=== PATIENT | female | born 1955 | race African-American/Black ===

== ENCOUNTER 2020-04-11 16:43 | Inpatient (IN) | payer OTHER ==
[~2020-04-11] VITALS: Ht 165.1 cm; Wt 65.8 kg
[~2020-04-11 16:43] MED LIST: ALLEGRA180 MG; LISINOPRIL5 MG; NOVOLOG100 UNIT/1; PREVACID15 MG; PROCHAMBER1 EACH; TRAMADOL 50 MG50 MG PO
[2020-04-11 16:45] VITALS: BP 192/107
[2020-04-11 17:50] LABS: ABSOLUTE NEUTROPHILS 6.9 thou/uL (1.4-8.2); BASOPHILS 0.5 % (0.0-2.0); EOSINOPHILS 3.5 % (0.0-3.0); LYMPHOCYTES 20.6 % (24.0-44.0); MCH 29.2 pg (26.0-34.0); MCHC 33.2 g/dL (28.0-37.0); PLATELET COUNT 274 thou/uL (150-400); POLYS 65.4 % (36.0-66.0); RBC 4.09 mil/uL (4.20-5.00); RDW 13.1 % (10.5-14.5); WBC 10.5 thou/uL (4.0-11.0)
[2020-04-11 17:52] LABS: ANION GAP 11 mmol/L (7-16); BUN 51 mg/dL (7-18); CALCIUM 8.8 mg/dL (8.5-10.1); CHLORIDE 110 mmol/L (98-107); CO2 21 mmol/L (21-32); CREATININE 2.8 mg/dL (0.6-1.0); GLUCOSE 108 mg/dL (74-106); POTASSIUM 4.7 mmol/L (3.5-5.1); SODIUM 142 mmol/L (136-145)
[2020-04-11 17:58] LABS: ALBUMIN 2.7 g/dL (3.4-5.0); SALICYLATE < 2.8 mg/dL (2.8-20.0); SGOT 27 U/L (15-37); SGPT 15 U/L (30-65); TOTAL BILIRUBIN 0.3 mg/dL (0.2-1.0)
[2020-04-11 18:01] LABS: URINE BILIRUBIN NEGATIVE (Negative); URINE BLOOD TRACE (Negative); URINE CLARITY CLEAR; URINE COLOR YELLOW; URINE GLUCOSE-RANDOM* NEGATIVE (Negative); URINE KETONES 1+ (Negative); URINE LEUKOCYTES-REFLEX NEGATIVE (Negative); URINE NITRITE-REFLEX NEGATIVE (Negative); URINE PROTEIN (DIPSTICK) 3+ (Negative); URINE SPECIFIC GRAVITY 1.025 (1.005-1.035); URINE UROBILINOGEN 0.2 E.U./dl (0.2-1.0)
[2020-04-11 18:08] LABS: CASTS None Seen /LPF (None Seen); SQUAMOUS 0-3 Few /LPF (0-3); URINE RBC 0-2 Rare /HPF (0-2)
[2020-04-11 18:09] LABS: AMORPHOUS URATES Moderate /LPF (None Seen); AMP/METHAMP Negative (Negative); BACTERIA-REFLEX 1-9 Few /HPF (None Seen); BARBITURATES Negative (Negative); BENZODIAZEPINES Negative (Negative); COCAINE Negative (Negative); METHADONE Negative (Negative); OPIATES Negative (Negative); PCP Negative (Negative); URINE WBC-REFLEX None Seen /HPF (0-5)
[2020-04-11] MEDS ORDERED: ADVAIR 250-501 EACH INH (19:15)
[2020-04-11] MEDS ORDERED: PROAIR HFA8.5 GM INH (19:15)
[2020-04-11] MEDS ORDERED: NORVASC 2.5 MG2.5 M1 PO (19:16)
[2020-04-11] MEDS ORDERED: BACLOFEN 10MG T10 MG PO (19:16)
[2020-04-11] MEDS ORDERED: ASA81BEC PO (19:16)
[2020-04-11] MEDS ORDERED: ARTIFICIAL TEAR1510 OPHTHALMIC (19:16)
[2020-04-11] MEDS ORDERED: LIPITOR40 MG PO (19:16)
[2020-04-11] MEDS ORDERED: CALCITRIOL0.25 MCG PO (19:17)
[2020-04-11] MEDS ORDERED: CARVEDILOL12.5 MG PO (19:18)
[2020-04-11] MEDS ORDERED: VALPROIC ACID250 MG PO (19:19)
[2020-04-11] MEDS ORDERED: IRON325 PO (19:19)
[2020-04-11] MEDS ORDERED: VITAMIN B-121000 MC2 SUBLING (19:19)
[2020-04-11] MEDS ORDERED: FLONASE 0.05%50 MCG NARES (19:20)
[2020-04-11] MEDS ORDERED: CLARITIN10 M3 PO (19:20)
[2020-04-11] MEDS ORDERED: LAMOTRIGINE ODT25 MG PO (19:20)
[2020-04-11] MEDS ORDERED: MIRALAX119 GM PO (19:21)
[2020-04-11] MEDS ORDERED: LORAZEPAM 0.50.5 MG PO (19:21)
[2020-04-11] MEDS ORDERED: NITROSTAT0.4 M1 SUBLING (19:21)
[2020-04-11] MEDS ORDERED: PROTONIX40 M2 PO (19:22)
[2020-04-11] MEDS ORDERED: VENTOLIN HFA 1818 GM INH (19:22)
[2020-04-11] MEDS ORDERED: PHENERGAN 25 MG25 M1 PO (19:22)
[2020-04-11] MEDS ORDERED: REGLAN 5 MG TAB5 MG PO (19:22)
[2020-04-11] MEDS ORDERED: CARAFATE 1 GM TA1 GM PO (19:23)
[2020-04-11] MEDS ORDERED: SENNA PLUS TAB1 EACH PO (19:23)
[2020-04-11] MEDS ORDERED: ZOFRAN4 MG PO (19:24)
[2020-04-11] MEDS ORDERED: ACETAMINOPHEN500 M1 PO (19:24)
--- NOTE | 2020-04-11 20:48 | NUR ---
REPORT GIVEN TO NURSE MELISSA
[2020-04-11 21:45] VITALS: BP 146/92
[2020-04-12 00:22] VITALS: BP 148/77
--- NOTE | 2020-04-12 00:49 | NUR ---
Pt admitted to unit from ER @ 2145 via gurney. Pt was assisted into bed et health assessment with vitals was performed. Pt was unable to answer questions from intake so questions were deferred until DPOA could be spoken to. DPOA was called for consent to treat and for additional information on patient. DPO is niece et states that she is not well versed on pt's health or family history. Pt's health assessment reveals VSWNL et rudimentary physical was obtained as patient would not allow an in-depth exam or skin assessment. Pt very angry, irritable, combative, et verbally abusive with staff. Denies SI/HI. Pt currently resting in bed with eyes closed. Will continue to monitor per protocol.
[2020-04-12 07:51] VITALS: BP 145/72
[2020-04-12 08:00] VITALS: BP 145/72
--- NOTE | 2020-04-12 08:10 | EKG ---
[facility] [place] [address] [place] [address] ELECTROCARDIOGRAM REPORT Name: EMERY SIMPSON Room #: [facility]- ADM IN M.R.#: [id number] Admission: 04/11/20 Attend Phys: Waldemar Palma DO Discharge: Date of : 59 Report #: [id number] THIS REPORT FOR: cc: Sanjay Fernandez James D. DO Lundgren, Craig H. MD [facility] ~ THIS REPORT FOR: //name// [facility] ED Test Date: 2020-04-11 Test Time: 18:17:23 Pat Name: EMERY SIMPSON Department: Room: [facility] Gender: F Dry Cleaning Checker: nesha : 1955 Requested By: Erica Dixon Order Number: [id number] MD: Adam Huddleston Measurements Intervals Sherman Rate: 107 P: 63 AR: 141 QRS: 44 QRSD: 86 T: 81 QT: 331 QTc: 442 Interpretive Statements Sinus tachycardia Otherwise normal tracing Compared to ECG 09/28/2013 11:29:23 No significant change was found Electronically Signed On 04-12-2020 8:08:36 CDT by Adam Huddleston [email or web address] <ELECTRONICALLY SIGNED> By: Adam Huddleston MD, [facility] 04/12/20 0808 [id number] 16 Adam Huddleston MD, [facility] /EPI
--- NOTE | 2020-04-12 09:16 | NUR ---
PT SITTING IN DAY ROOM. PT NEEDED ASSISTANCE WITH OPENING ITEMS ON TRAY. PT TOOK AM MEDS WITHOUT ANY ISSUES. PT WAS INCON OF URINE THIS AM BEFORE GETTING UP FOR BREAKFAST. PT DIDN'T HAVE ANY BEHAVIORS WITH CHANGING BRIEF AND PANTS. APPLIED SKIN BARRIER TO AI AREA.
--- NOTE | 2020-04-12 10:23 | NUR ---
Nutrition: Pt admitted with major neurocognitive disorder to [facility] unit. Had been combative, verbally abusive to staff at [facility]. PMH: dementia, chronic constipation, CVA, HTN. Spoke with pt, appeared confused. No weight hx but pt states he has lost 100#. Unsure of accuracy. No wasting observed. Did report likes all food and will eat what you give her. Ate 70% of breakfast, new admit, first meal on unit. On Fe+ supplement and bowel regimen. Provider has documented malnutrition-RD will defer. Follow intake and weight trends but place as low nutrition risk for now.
--- NOTE | 2020-04-12 13:36 | NUR ---
Ariel called and left a VM with rose Clarke [phone] to complete the intake assessment.
--- NOTE | 2020-04-12 15:37 | NUR ---
Sw attempted to meet with pt but she was asleep. Sw completed the intake assessment and TP based on the inforamtion avaibale in chart.
[2020-04-12 20:00] VITALS: BP 152/87
--- NOTE | 2020-04-13 05:01 | NUR ---
Assumed care of pt at 1900. Pt calm et cooperative this shift. Took medications whole without difficulty. Ambulates via w/c. VSWNL. Health assessment with no abnormalities other than previously noted. Denies SI/HI but uncertain if pt truly understood the questions. Pt does not however appear to be in any acute emotional distress at the present time. Currently resting in recliner in dayroom with eyes closed. Will continue to monitor per protocol.
[2020-04-13 07:50] LABS: CALCIUM 8.8 mg/dL (8.5-10.1); CREATININE 2.8 mg/dL (0.6-1.0); MAGNESIUM 1.8 mg/dL (1.8-2.4); POTASSIUM 4.5 mmol/L (3.5-5.1)
[2020-04-13 07:52] LABS: ABSOLUTE NEUTROPHILS 4.8 thou/uL (1.4-8.2); BASOPHILS 0.5 % (0.0-2.0); EOSINOPHILS 3.9 % (0.0-3.0); HEMATOCRIT 33.1 % (37.0-47.0); HEMOGLOBIN 10.9 gm/dL (12.0-15.0); LYMPHOCYTES 29.8 % (24.0-44.0); MCH 29.4 pg (26.0-34.0); MCV 89.2 fL (80.0-100.0); MONOCYTES 9.2 % (1.0-8.0); PLATELET COUNT 233 thou/uL (150-400); POLYS 56.6 % (36.0-66.0); RBC 3.71 mil/uL (4.20-5.00); RDW 13.3 % (10.5-14.5); WBC 8.4 thou/uL (4.0-11.0)
[2020-04-13 08:50] VITALS: BP 121/70
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
[2020-04-13 10:09] VITALS: BP 121/70
--- NOTE | 2020-04-13 17:47 | NUR ---
Patient was sleeping during group.
[2020-04-13 20:11] VITALS: BP 157/78
[2020-04-13 22:00] VITALS: BP 157/78
--- NOTE | 2020-04-14 01:38 | NUR ---
Assumed care of patient this pm shift. Patient lying in her room in bed. Patient is rousable but speaks very little. Patient is mostly asleep unless aroused. Patient did not respond regarding pain. Patient did not answer any of the cognitive questions. Patients assessment shows diminished breath sounds, hypoactive bowel sounds, and s1 s2 heard with auscultation. Patient takes medications whole but did not arouse enough to take them this evening. We will continue to monitor per hospital protocol.
[2020-04-14 06:37] LABS: ALBUMIN 2.5 g/dL (3.4-5.0); CALCIUM 8.8 mg/dL (8.5-10.1); CREATININE 2.8 mg/dL (0.6-1.0); PHOSPHORUS 4.1 mg/dL (2.5-4.9)
[2020-04-14 07:46] VITALS: BP 149/98
--- NOTE | 2020-04-14 08:25 | NUR ---
PT SITTING OUT IN DINING ROOM TALKING AND LAUGHING. PT STATED SHE IS AT THE BEST CONSTITUTION PARTY EVER AND HAVING FUN. SHE ALSO MAKES COMMENTS OF PLZ K[employer]. PT NEEDS ASSISTANCE WITH EATING, HANDS ARE WEAK. PT TOOK MEDS WHOLE WITH ASSISTANCE. PT IS TEARING.
[2020-04-14 08:30] VITALS: BP 149/98
[2020-04-14 08:56] VITALS: BP 149/98
--- NOTE | 2020-04-14 12:13 | NUR ---
CIRILO faxed updates to Anjelica.
--- NOTE | 2020-04-14 12:30 | NUR ---
PT LYING DOWN AT THIS TIME. ASKED PT IF SHE WAS READY TO GO TO LUNCH, SHE STATED SHE WOULD GET UP. EARLIER TODAY SHE STATED SHE WOULD LIKE TO HAVE TACOS, WHEN ASKED SOFT OR HARD, SHE STATED ANY KIND. PT IN HIGH SPIRITS THIS AM. WHEN THE AIDE WENT TO HER ROOM TO GET HER UP FOR LUNCH, PT WAS SLEEPING.
--- NOTE | 2020-04-14 16:08 | NUR ---
Patient was sleeping during group.
[2020-04-14 20:38] VITALS: BP 135/74
[2020-04-14 22:00] VITALS: BP 135/74
--- NOTE | 2020-04-15 01:10 | NUR ---
Assumed care of patient this pm shift. Patient in good spirits. Patient denies hi/si. Patient takes medications whole. Patient denies pain. Patient ambulates via wheelchair. Patient calm and med adherent. Patient is not continent of bowel or bladder. Patient is alert and oriented x2. Patients assessment shows clear breath sounds, diminished in the bases. Hypoactive bowel sounds, and s1 s2 heard with auscultation. Patient does not show any signs of aggression. We will continue to monitor per hospital protocol.
[2020-04-15 07:30] VITALS: BP 148/93
--- NOTE | 2020-04-15 07:30 | NUR ---
PT BLOOD SUGAR 57, GAVE PT ORANGE JUICE TO DRINK. PT DRANK 95% OF OJ.
[2020-04-15 08:00] VITALS: BP 148/93
--- NOTE | 2020-04-15 08:49 | NUR ---
PT AWAKE AT THIS TIME. PT NEEDED ASSISTANCE WITH TRANSFERS. PT LEFT HAND IS CURLED. PT NEEDS ASSISTANCE WITH FEEDING. PT ABLE TO SWALLOW WITHOUT ANY ISSUES. PT TOOK MEDS WHOLE. PT STATED SHE LIKES PINK COLOR AND ORANGE.
--- NOTE | 2020-04-15 11:47 | NUR ---
PT SLEEPING IN RECLINER. PT NEEDED ASSISTANCE WITH FEEDING. PT DID GRAB BLANKET AND SAID SHE WAS GOING TO GET THAT BITCH. PT SEEMS TO BE SEEING SOMEONE NOT THERE, PT LOOKING AT THE WALL.
--- NOTE | 2020-04-15 14:00 | NUR ---
PHYSICAL THERAPY SEEING PT AROUND THIS TIME.
--- NOTE | 2020-04-15 17:36 | NUR ---
ATTEMPTED TO GIVE 1600/1700 MEDS, PT NOT ABLE TO WAKE UP TO TAKE MEDS. PT DID AROUSE WHEN GETTING CHANGED PRIOR TO DINNER.
[2020-04-15 19:26] VITALS: BP 155/82
[2020-04-15 22:00] VITALS: BP 155/82
[2020-04-16] VITALS (8 sets, daily range): BP systolic 152–195; BP diastolic 80–122
--- NOTE | 2020-04-16 01:37 | NUR ---
Assumed care of patient this pm shift. Patient sitting in a reclining chair in the dayroom. Patient is calm and cooperative. Patient is alert and oriented to self and knows that she is in a hospital. Patient took medications crushed in orange sherbet. Patient is not ambulatory. Patient denies pain. Patient denies hi/si. Patients assessment shows course breath sounds, active bowel sounds and s1 s2 heard with auscultation. Patient resting comfortably. Patients affect appears to be flat. Patient does not show any signs of aggressive behaviors. We will continue to monitor per hospital protocol.
[2020-04-16 08:13] LABS: CREATININE 3.4 mg/dL (0.6-1.0); POTASSIUM 5.1 mmol/L (3.5-5.1)
[2020-04-16 08:18] LABS: ABSOLUTE NEUTROPHILS 5.3 thou/uL (1.4-8.2); BASOPHILS 0.3 % (0.0-2.0); EOSINOPHILS 3.3 % (0.0-3.0); HEMATOCRIT 36.1 % (37.0-47.0); HEMOGLOBIN 11.5 gm/dL (12.0-15.0); LYMPHOCYTES 25.8 % (24.0-44.0); MCH 28.9 pg (26.0-34.0); MCV 90.1 fL (80.0-100.0); MONOCYTES 9.3 % (1.0-8.0); PLATELET COUNT 259 thou/uL (150-400); POLYS 61.3 % (36.0-66.0); RDW 13.7 % (10.5-14.5); WBC 8.6 thou/uL (4.0-11.0)
[2020-04-16] MEDS ORDERED: CARVEDILOL12.5 MG PO (11:48)
[2020-04-16] MEDS ORDERED: DEPAKOTE125 MG PO (11:49)
[2020-04-16] MEDS ORDERED: PULMICORT0.5 MG/21 INH (11:50)
--- NOTE | 2020-04-16 12:43 | NUR ---
PATIENT CARE ASSUMED AT 0700 - AT THIS TIME PATIENT IN DINING CARLS[place] SLEEPING. VERY DIFFICULT TO AROUSE. BLOOD PRESSURE ELEVATED AT 195/177 WHEN TAKEN. ADMINISTERED MORNING MEDICAITONS WHICH INCLUDED NORVASC AND COREG TO AID WITH BP. DR. CHOWDARY CONTACTED ON BLOOD PRESSURE. ORDERED HYDRALAZINE IM BUT HELD - WHEN BLOOD PRESSURE TAKEN ONCE AGAIN IT WAS 162/122. ORDRED 9% NS 500 ML ADMINISTERED AT 125/HR. CALLED IV TEAM TO AID WITH IV INSERION AND START SINCE PATIENT HARD STICK. PATIENT HAS BEEN IN DINING CARLSON M O NITORED ALL MORNING. PATIENT ASSESSED BY DR. CHOWDARY AND CONCERNED WAS TAKING MINI SEIZURES AND OBSERVED STIFFNESS IN UPPER EXTREMITIES. ADVISED NURSE TO ADMINISTER KEPRA IV 500MG/5ML OVER 3-5 MIMUTES. PATIENT TOLERATED WELL. ADVISED STAFF WANTED PATIENT TO TRANSFER TO TELE MED SURG FLOOR TO BE MONITORED FURTHER. CALLED AND NO BEDS AVAILABLE BUT ON WAIT LIST FOR FIRST AVAILABLE BED. CURRENTLY PATIENT BEING MONITORED - PATIENT HAS EATEN VERY LITTLE AND LIMITED RESPONSE TO STIMULATION. VITALS STABLE AT THIS TIME AND RESPIRATIONS BETWEEN 18-20 PER MINUTE WHEN ABSERVED. FLUIDS RUNNING STEADILY. ALL MORNING MEDICATIONS ADMINISTERED CRUSHED IN APPLESAUCE AND TAKEN COMPLETELY.
--- NOTE | 2020-04-16 14:41 | NUR ---
PATIENT TRANSPORTED TO SECOND FLOOR ROOM 203 AT 14:30 TODAY. ESCORTED BY STAFF - ALL PATIENT'S BELONGINGS SENT WITH HER ALONG WITH APPROPRIATE DOCUMENTATION. PATIENT COMPLETED 300 CC OF 500 CC BAG OF 9% FLUIDS. IV IN LEFT ARM ABOVE ANTECUBULAR - PATIENT REPORT CALLED INTO MELISSA ON 2ND FLOOR. PATIENT WAS SLEEPING AND CALM ON TRANSPORT.
--- NOTE | 2020-04-17 10:55 | D ---
[facility] [place] [address] DISCHARGE SUMMARY Name: EMERY SIMPSON Room #: 523A-A [facility] IN M.R.#: [id number] Admission: 04/11/20 Attend Phys: Waldemar Palma DO Discharge: 04/16/20 Date of : 59 Report #: [id number] THIS REPORT FOR: cc: Sanjay Fernandez James D. DO Kerstein, Andrew H. 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 ATTENDING PSYCHIATRIST: Waldemar Palma DO. PROOFER BLACK AND WHITE AT THE TIME OF DISCHARGE: Genesis Nielson M.D. 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 MEDICAL COMORBIDITIES AT THE TIME OF DISCHARGE: Hypertension, borderline hypoglycemia, chronic renal failure. Additional problems include protein-calorie malnutrition, paroxysmal atrial fibrillation, chronic constipation, anemia. DIET AT THE TIME OF DISCHARGE: Will be n.p.o. due to the concern of nonconvulsive status. adjustment by hospitalist. ACTIVITY LEVEL: Bed rest at this time. Again will be reevaluated by the hospitalist on medical unit. DISCHARGE MEDICATIONS: As follows: Coreg 12.5 mg p.o. b.i.d. before meals due to hypertension, Depakote 375 mg p.o. b.i.d. for impulsivity, mood stabilization, Pulmicort 0.5 mg inhaled twice per day for COPD, once she is out of hospital she can use Advair Diskus inhaled b.i.d., p.r.n. albuterol, amlodipine 5 mg p.o. daily for blood pressure with parameters for systolic less than 100, atorvastatin 40 mg p.o. at bedtime for hyperlipidemia, aspirin 81 mg p.o. daily for cardio protection, calcitriol 0.25 mcg p.o. daily for calcium homeostasis, ferrous sulfate 325 mg p.o. daily, polyethylene glycol 17 g p.o. daily for bowel motility, ferrous sulfate for anemia, pantoprazole 40 mg p.o. daily for [facility] [address] [place] [address] DISCHARGE SUMMARY Name: EMERY SIMPSON Room #: 523A-A [facility] IN [facility].#: [id number] Admission: 04/11/20 Attend Phys: Waldemar Palma DO Discharge: 04/16/20 Date of : 59 Report #: [id number] GERD, senna docusate 2 tabs p.o. at bedtime for bowel motility. She was getting Carafate 1 tab p.o. 4 times a day for, I guess, history of gastritis. REASON FOR THE PATIENT'S PSYCHIATRIC ADMISSION IN THE END OF MARCH: As follows: A 64-year-old disabled female sent from [facility]. Apparently, the patient had been verbally abusive toward staff, throwing objects, refusing medications, physically aggressive towards nursing staff. The patient is managed by Dr. Bridges's group at [facility]. Geriatric psych admission was suggested by Dr. Bridges. HOSPITAL COURSE: The patient was admitted to the Geriatric Psychiatry Unit. The patient is quite disabled. She is requiring 2-person essentially max assist to transfer. Physical therapy was able to work with her briefly. She is able to bear weight, but has prominent executive dysfunction and despite her ability to bear weight essentially is not able to walk or participate better in psychotherapy. In the last 24 hours prior to discharge to the medical unit, the patient was hypersomnolent. Ammonia level was checked that was found to be normal. Depakote level was 58. Ammonia was less than 10 on 04/16/2020. LABORATORY DATA: Her creatinine then increased from 2.8 to 3.4, BUN was high at 56 the day of discharge, sodium 147, potassium 5.1, chloride 114, bicarbonate 23, anion gap 10. She did have hypoglycemia the day before discharge and the morning of discharge. Blood pressures remained stable. Vital signs at time of discharge; pulse 93, respirations 12, BP 163/80. The patient is nonambulatory. She did receive IV fluids this morning while on our unit. Dr. Nielson did give her loading dose of Keppra due to concerns for status. Additionally, head CT was done which was fairly nonacute in findings, mild microvascular disease. No evidence of hemorrhage, mass effect or midline shift, read by Dr. Dash. MENTAL STATUS EXAMINATION: This is a well-developed, ill-appearing black female. She is arousable to pain. Really she will talk few words, but really cannot get an intelligent conversation. She has impaired for attention and concentration, no signs of homicidality or suicidality, but questioning her about that such as hallucination. Insight impaired, judgment impaired. Memory impaired. Fund of knowledge well below average. PROGNOSIS: For this patient is guarded to poor given her dementia. Multiple health problems. I did not get a chance to call her DPOA, I missed today myself, who lives in [place], [place]. Hopefully, the medical team did downstairs. I will be happy to consult on the patient while she is on the medical unit. Overall, I would recommend conservative approach with her case given the unfortunate turn and help this out in the last couple of years, I [facility] [address] [place] [address] DISCHARGE SUMMARY Name: EMERY SIMPSON Room #: 523A-A [facility] IN M.R.#: [id number] Admission: 04/11/20 Attend Phys: Waldemar Palma DO Discharge: 04/16/20 Date of : 59 Report #: [id number] believe her significant stroke she had dates back to 2016. greater than 40 minutes spent on discharge activities <ELECTRONICALLY SIGNED> By: Waldemar Palma DO 04/17/20 1055 [id number] Waldemar Palma, /nt
== END 2020-04-16 14:43 | disposition short-term general hospital (02) | DRG 884 ==
LOC: ER 16:43 → EROBS 19:10 → SBH 19:10
PROVIDERS: Hospitalist; Nurse Practitioner; Physician Assistant; ADMIT Psychiatry & Neurology Psychiatry
DX: F01.51 Vascular dementia, unspecified severity, with behavioral disturbance (principal); F91.1 Conduct disorder, childhood-onset type; N18.4 Chronic kidney disease, stage 4 (severe); N17.9 Acute kidney failure, unspecified; I11.0 Hypertensive heart disease with heart failure; R45.851 Suicidal ideations; I13.0 Hypertensive heart and chronic kidney disease with heart failure and stage 1 through stage 4 chronic kidney disease, or unspecified chronic kidney disease; E44.0 Moderate protein-calorie malnutrition; I50.9 Heart failure, unspecified; R45.1 Restlessness and agitation; G47.10 Hypersomnia, unspecified; K21.9 Gastro-esophageal reflux disease without esophagitis; I48.0 Paroxysmal atrial fibrillation; J44.9 Chronic obstructive pulmonary disease, unspecified; E78.5 Hyperlipidemia, unspecified; G51.0 Bell's palsy; E11.22 Type 2 diabetes mellitus with diabetic chronic kidney disease; I16.0 Hypertensive urgency; E16.2 Hypoglycemia, unspecified; K59.09 Other constipation; Z68.24 Body mass index [BMI] 24.0-24.9, adult; Z86.73 Personal history of transient ischemic attack (TIA), and cerebral infarction without residual deficits; Z90.710 Acquired absence of both cervix and uterus; Z79.82 Long term (current) use of aspirin; Z79.899 Other long term (current) drug therapy; Z79.01 Long term (current) use of anticoagulants
CPT/HCPCS: 10880

== ENCOUNTER 2020-04-16 14:49 | Inpatient (IN) | payer OTHER | END 2020-04-22 15:44 | DRG 682 | LOC: 2N 14:49 → 4S 04-21 19:57 | PROVIDERS: ADMIT Hospitalist | PROC: B01B1ZZ Fluoroscopy of Spinal Cord using Low Osmolar Contrast (ICD-10-PCS; principal; 2020-04-19) | PROC: 009U3ZZ Drainage of Spinal Canal, Percutaneous Approach (ICD-10-PCS; principal; 2020-04-19) | DX: N17.0 Acute kidney failure with tubular necrosis (principal); G93.41 Metabolic encephalopathy; N39.0 Urinary tract infection, site not specified; I69.351 Hemiplegia and hemiparesis following cerebral infarction affecting right dominant side; F03.91 Unspecified dementia, unspecified severity, with behavioral disturbance; E44.0 Moderate protein-calorie malnutrition; F01.51 Vascular dementia, unspecified severity, with behavioral disturbance; E87.0 Hyperosmolality and hypernatremia; N18.4 Chronic kidney disease, stage 4 (severe); E16.2 Hypoglycemia, unspecified; R56.9 Unspecified convulsions; F32.9 Major depressive disorder, single episode, unspecified; I48.0 Paroxysmal atrial fibrillation; G51.0 Bell's palsy; I12.9 Hypertensive chronic kidney disease with stage 1 through stage 4 chronic kidney disease, or unspecified chronic kidney disease; I16.0 Hypertensive urgency; E11.22 Type 2 diabetes mellitus with diabetic chronic kidney disease; R41.0 Disorientation, unspecified; K59.09 Other constipation; D64.9 Anemia, unspecified; Z20.828 Contact with and (suspected) exposure to other viral communicable diseases; G47.00 Insomnia, unspecified; Z68.33 Body mass index [BMI] 33.0-33.9, adult; Z90.710 Acquired absence of both cervix and uterus; Z79.01 Long term (current) use of anticoagulants; Z79.82 Long term (current) use of aspirin; Z79.899 Other long term (current) drug therapy ==